=== PATIENT | male | born 1985 | race African-American/Black ===

== ENCOUNTER 2017-06-23 00:58 | Emergency (ER) | payer OTHER ==
[~2017-06-23] VITALS: Ht 188 cm; Wt 70.0 kg
[2017-06-23 01:09] VITALS: BP 144/96; PULSE 70; RESP 16; TEMP 97.7; O2SAT 98
[2017-06-23] MEDS ORDERED: TETANUS/DIPHTHERIA TOXOID ADULT 0.5 ML VIAL IM ONE (01:45)
[2017-06-23 02:10] VITALS: BP 123/76; PULSE 55; RESP 16
--- NOTE | 2017-06-23 02:11 | PD ---
HPI Chief Complaint: Laceration/Skin Injury Time Seen by Provider: 02:06 Travel History International Travel<30 days: No Contact w/Intl Traveler<30days: No Traveled to known affect area: No History of Present Illness HPI 32-year-old male presents for evaluation of lacerations to the left hand third fourth and fifth fingers. It was sustained at work. He reports that he was helping to lift a large steel drum and there was a ring around it that cut his fingers. He has pain, aching, worse with palpation, associated bleeding. No numbness, tingling, weakness. Last tetanus vaccination unknown. No other complaints. [facility] Past Medical History Medical History: Denies Significant Hx Tetanus Vaccination: Unknown Influenza Vaccination: No Past Surgical History Surgical History: No Previous Surgery Social History Alcohol Use: Yes (weekends only) Tobacco Use: Yes (1Pack q3d) Substance Use: No Allergies-Medications (Allergen,Severity, Reaction): Coded Allergies: No Known Allergies (Unverified , 06/23/17) Reported Meds & Prescriptions Reported Meds & Active Scripts Active No Active Prescriptions or Reported Medications Review of Systems Musculoskeletal: No: Pain Skin: Positive Other (positive for lacerations, bleeding) Neurologic: No: Paresthesia Physical Exam Narrative GENERAL: Well-developed well-nourished male in no acute distress SKIN: Warm and dry. 1 cm laceration to the distal aspect of the left third fourth and fifth fingers. No bony involvement. HEAD: Atraumatic. Normocephalic. EYES: Pupils equal and round. No scleral icterus. No injection or drainage. ENT: No nasal bleeding or discharge. Mucous membranes pink and moist. NECK: Trachea midline. No JVD. CARDIOVASCULAR: Regular rate and rhythm. No murmur appreciated. RESPIRATORY: No accessory muscle use. Clear to auscultation. Breath sounds equal bilaterally. MUSCULOSKELETAL: No obvious deformities. No clubbing. No cyanosis. No edema. NEUROLOGICAL: Awake and alert. No obvious cranial nerve deficits. Motor grossly within normal limits. Normal speech. PSYCHIATRIC: Appropriate mood and affect; insight and judgment normal. Data Data Last Documented VS Vital Signs Date Time Temp Pulse Resp B/P (MAP) Pulse Ox O2 Delivery O2 Flow Rate FiO2 06/23/17 01:37 16 06/23/17 01:09 97.7 70 144/96 (112) 98 Room Air Orders Orders Tetanus/Diphtheria Tox Adult (Tetanus/Di (06/23/17 01:45) MDM Medical Decision Making Medical Screen Exam Complete: Yes Emergency Medical Condition: Yes Medical Record Reviewed: Yes Differential Diagnosis Cutaneous laceration, tissue avulsion, puncture wound Narrative Course The lacerations were repaired, he verbally consented. Tetanus status updated. Stable for discharge. Procedures Procedure Narrative LACERATION LOCATION: 1 cm LENGTH: Left fourth finger NUMBER OF STITCHES/TARA: 4 REPAIR: The area of the laceration was prepped with Betadine and sterilely draped. The laceration was infiltrated with 1% lidocaine digital block. The wound was copiously irrigated and explored without evidence of foreign body, tendon injury or neurovascular injury. The wound was closed using 5-0 NYLON simple interrupted. This was a single layer repair. A sterile dressing was applied. The patient was advised to keep the dressing clean and dry. Patient tolerated the procedure well. LACERATION LOCATION: 1 cm LENGTH: Left third finger NUMBER OF STITCHES/TARA: Dermabond REPAIR: The area of the laceration was prepped with Betadine and sterilely draped. The wound was copiously irrigated and explored without evidence of foreign body, tendon injury or neurovascular injury. The wound was closed using Dermabond. This was a single layer repair. A sterile dressing was applied. The patient was advised to keep the dressing clean and dry. Patient tolerated the procedure well. LACERATION LOCATION: 1 cm LENGTH: Left fifth finger NUMBER OF STITCHES/TARA: 5 REPAIR: The area of the laceration was prepped with Betadine and sterilely draped. The laceration was infiltrated with 1% lidocaine digital block. The wound was copiously irrigated and explored without evidence of foreign body, tendon injury or neurovascular injury. The wound was closed using 5-0 NYLON simple interrupted. This was a single layer repair. A sterile dressing was applied. The patient was advised to keep the dressing clean and dry. Patient tolerated the procedure well. Diagnosis Primary Impression: Laceration of left hand Additional Instructions: Wash the wounds with sutures with soap and water and apply antibiotic cream daily. Keep the wound was repaired with Dermabond clean and dry and do not put any creams or lotions on it. Return in 10-14 days for suture removal. Med/Other Pt SpecificInfo: Wound Care Scripts No Active Prescriptions or Reported Meds Disposition: 01 DISCHARGE HOME Condition: Stable Robson Coley Jun 23, 2017 02:11
== END 2017-06-23 02:36 | disposition home or self-care (01) ==
LOC: NEPD 00:58
DX: S61.213A Laceration without foreign body of left middle finger without damage to nail, initial encounter (principal); S61.215A Laceration without foreign body of left ring finger without damage to nail, initial encounter; S61.217A Laceration without foreign body of left little finger without damage to nail, initial encounter; W45.8XXA Other foreign body or object entering through skin, initial encounter; Y93.89 Activity, other specified; Y99.0 Civilian activity done for income or pay; Z23 Encounter for immunization
CPT/HCPCS: 12002; 90471; 90714